=== PATIENT | female | born 1995 | race African-American/Black ===

== ENCOUNTER 2019-06-14 09:39 | Emergency (ER) | payer MEDICAID ==
[~2019-06-14] VITALS: Ht 157.5 cm; Wt 59.0 kg
[2019-06-14 09:58] VITALS: BP_SYST 137
[2019-06-14] MEDS ORDERED: ACETAMINOPHEN 500 MG TABLET PO ONE (10:30)
[2019-06-14 11:38] VITALS: BP_SYST 124
== END 2019-06-14 11:38 | disposition home or self-care (01) ==
LOC: SED 09:39
DX: S16.1XXA Strain of muscle, fascia and tendon at neck level, initial encounter (principal); S40.011A Contusion of right shoulder, initial encounter; R03.0 Elevated blood-pressure reading, without diagnosis of hypertension; Z88.7 Allergy status to serum and vaccine; Y04.0XXA Assault by unarmed brawl or fight, initial encounter; Y93.89 Activity, other specified; Y92.89 Other specified places as the place of occurrence of the external cause; Y99.8 Other external cause status
CPT/HCPCS: 72040-TC; 73030; 99283

== ENCOUNTER 2019-06-20 17:59 | Emergency (ER) | payer MEDICAID ==
[~2019-06-20] VITALS: Ht 157.5 cm; Wt 59.0 kg
[2019-06-20 18:05] VITALS: BP_SYST 108
[2019-06-20] MEDS ORDERED: traMADol HCL HCL 50 MG TABLET (ULTRAM) PO ONE (18:45)
[2019-06-20 19:55] VITALS: BP_SYST 112
== END 2019-06-20 19:55 | disposition home or self-care (01) ==
LOC: SED 17:59
DX: S29.011A Strain of muscle and tendon of front wall of thorax, initial encounter (principal); Z88.7 Allergy status to serum and vaccine; Z85.51 Personal history of malignant neoplasm of bladder; X50.9XXA Other and unspecified overexertion or strenuous movements or postures, initial encounter; Y93.89 Activity, other specified; Y92.89 Other specified places as the place of occurrence of the external cause; Y99.8 Other external cause status
CPT/HCPCS: 71045; 71100; 81025; 99283

== ENCOUNTER 2019-07-20 11:08 | Emergency (ER) | payer MEDICAID ==
[~2019-07-20] VITALS: Ht 157.5 cm; Wt 59.0 kg
[2019-07-20 11:10] VITALS: BP_SYST 127
[2019-07-20 11:41] LABS: BASOPHILS # (AUTO) 0.1 K/uL (0.0-0.2); BASOPHILS % (AUTO) 0.7 % (0.0-2.0); EOSINOPHILS # (AUTO) 0.2 K/uL (0.0-0.4); EOSINOPHILS % (AUTO) 2.2 % (0.0-4.0); HEMOGLOBIN 11.4 g/dL (12.0-16.0); LYMPHOCYTES # (AUTO) 2.9 K/uL (1.0-5.5); LYMPHOCYTES % (AUTO) 37.3 % (20.5-51.5); MEAN CORPUSCULAR HEMOGLOBIN 25 pg (27-31); MEAN CORPUSCULAR HGB CONC 33 % (32-36); MEAN CORPUSCULAR VOLUME 78 fL (79.0-98.0); MONOCYTES # (AUTO) 0.5 K/uL (0.0-1.0); NEUTROPHILS # (AUTO) 4.2 K/uL (1.8-7.7); NEUTROPHILS % (AUTO) 53.8 % (40.0-70.0); PLATELET COUNT (AUTO) 244 K/uL (130-430); RED BLOOD CELL COUNT(AUTO) 4.52 MIL/uL (4.2-6.2); WHITE BLOOD COUNT (AUTO) 7.8 K/uL (4.8-10.8)
[2019-07-20 12:14] LABS: CREATININE 0.76 mg/dL (0.55-1.30); POTASSIUM 3.4 mmol/L (3.5-5.1)
[2019-07-20] MEDS: NACL 0.9% 1,000 ML IV ONE (12:14)
[2019-07-20] MEDS: KETOROLAC TROMETHAMINE 30 MG VIAL IVP ONE (12:16)
[2019-07-20 12:18] LABS: ALBUMIN 4.2 g/dL (3.4-4.8); TOTAL BILIRUBIN 1.2 mg/dL (0.0-1.0)
[2019-07-20] MEDS: ONDANSETRON HCL 4 MG/2 ML VIAL IVP ONE (12:18)
[2019-07-20 12:48] LABS: BILIRUBIN,URINE 1+ (NEGATIVE); BLOOD, URINE 3+ (NEGATIVE); CLARITY/URINE CLEAR (CLEAR); COLOR,URINE YELLOW (YELLOW); GLUCOSE,URINE NEGATIVE (NEGATIVE); KETONES,URINE TRACE (NEGATIVE); LEUKOCYTE ESTERASE ,URINE NEGATIVE (NEGATIVE); NITRITE, URINE NEGATIVE (NEGATIVE); PROTEIN URINE NEGATIVE (NEGATIVE); UROBILINOGEN,URINE 0.2 (0.2-1.0)
[2019-07-20 13:30] LABS: BACTERIA,URINE FEW /HPF (None Seen); MUCUS,URINE 1+ /LPF (None Seen); WBC,URINE 0-3 /HPF (0-3)
[2019-07-20] MEDS: fentaNYL CITRATE/PF 100 MCG/2 ML AMP IVP ONE (15:05)
[2019-07-20 16:40] VITALS: BP_SYST 118
== END 2019-07-20 16:40 | disposition home or self-care (01) ==
LOC: SED 11:08
DX: N94.6 Dysmenorrhea, unspecified (principal); R11.2 Nausea with vomiting, unspecified; Z88.7 Allergy status to serum and vaccine
CPT/HCPCS: 36415; 74176; 76830; 76857; 80053; 81000; 81025; 84702; 85025; 96361; 96374; 96375; 99284; J1885; J2405; J3010; J7030

== ENCOUNTER 2019-09-20 10:40 | Emergency (ER) | payer MEDICAID ==
[~2019-09-20] VITALS: Ht 157.5 cm; Wt 59.0 kg
[2019-09-20 10:52] VITALS: BP_SYST 99
--- NOTE | 2019-09-20 11:00 | NUR ---
Patient AAOx4 c/o asthma exacerbation with SOB since 299 today and chest pain with respirations. Patient reports cough, congestion, and dizziness. Wheezes noted upon auscultation. Patient denies any other pain. Respirations labored, MD aware. RT at bedside. Will continue to monitor.
--- NOTE | 2019-09-20 11:02 | NUR ---
Patient to ER bed ch1 for evaluation. Side rails up. Report given to Hero BEATTY.
--- NOTE | 2019-09-20 11:10 | NUR ---
FORD Calabrese at bedside examining patient.
[2019-09-20] MEDS ORDERED: IPRATROPIUM/ALBUTEROL SULFATE 3 ML AMPUL.NEB (DUONEB) INH ONE ×2 (11:15→11:30)
[2019-09-20] MEDS ORDERED: methylPREDNISolone SOD SUCC/PF 62.5 MG/ML VIAL IM ONE (11:15)
[2019-09-20] MEDS ORDERED: IPRATROPIUM/ALBUTEROL SULFATE 3 ML AMPUL.NEB (DUONEB) ONE (11:37)
--- NOTE | 2019-09-20 12:45 | NUR ---
Patient resting in bed, denies any pain or SOB. Mother at bedside. No signs or symptoms of acute distress noted.
--- NOTE | 2019-09-20 12:50 | NUR ---
Report given to Rossy BEATTY using SBAR approach for continuation of care.
[2019-09-20 13:06] VITALS: BP_SYST 102
--- NOTE | 2019-09-20 13:06 | NUR ---
Patient given written and verbal discharge instructions and verbalizes understanding. ER MD Dr. Calabrese discussed with patient the results and treatment provided. Patient in stable condition. ID arm band removed. Rx of Prednisone, Albuterol, Promethazine, and Tamiflu given. Patient educated on respiratory/pain management and to follow up with PMD. Pain Scale 2/10. Opportunity for questions provided and answered. Medication side effect fact sheet provided.
== END 2019-09-20 13:06 | disposition home or self-care (01) ==
LOC: SED 10:40
DX: J10.1 Influenza due to other identified influenza virus with other respiratory manifestations (principal); J45.901 Unspecified asthma with (acute) exacerbation
CPT/HCPCS: 86710; 94640; 96372; 99284; J2930; J7620; 36415

== ENCOUNTER 2020-03-22 03:30 | Emergency (ER) | payer MEDICAID ==
[~2020-03-22] VITALS: Ht 157.5 cm; Wt 61.2 kg
--- NOTE | 2020-03-22 03:34 | NUR ---
Patient to ER bed 5 to gown for evaluation. Side rails up.
[2020-03-22 03:35] VITALS: BP_SYST 127
--- NOTE | 2020-03-22 03:36 | NUR ---
Patient came to ER. C/O Allergy x today. Patient states "woke up at 0300 AM, ate burritos last meal, bilateral eyes swelling and itchy. " A/O,X4, bilateral lower eye lid swelling and itchy, no SOB, chest tightness, oxygen sat 100% RA, place on varnish mixer.
--- NOTE | 2020-03-22 03:40 | NUR ---
ER Dr. Montenegro at bedside examining patient.
[2020-03-22] MEDS ORDERED: IPRATROPIUM/ALBUTEROL SULFATE 3 ML AMPUL.NEB (DUONEB) INH ONE (03:45)
[2020-03-22] MEDS ORDERED: EPINEPHrine 1 MG/ML AMP IM ONE (03:45)
--- NOTE | 2020-03-22 03:58 | NUR ---
RT at bedside for Breathing Treatment.
--- NOTE | 2020-03-22 04:25 | NUR ---
Patient will call her mother for a ride.
[2020-03-22] MEDS ORDERED: DIPHENHYDRAMINE INJ 50 MG/ML VIAL IM ONE (04:30)
--- NOTE | 2020-03-22 04:39 | NUR ---
Blood for labwork drawn from display artist. Patient tolerated well.
[2020-03-22 05:01] LABS: BASOPHILS # (AUTO) 0.1 K/uL (0.0-0.2); BASOPHILS % (AUTO) 0.7 % (0.0-2.0); EOSINOPHILS # (AUTO) 0.3 K/uL (0.0-0.4); EOSINOPHILS % (AUTO) 3.5 % (0.0-4.0); HEMATOCRIT 31.2 % (36-48); HEMOGLOBIN 9.8 g/dL (12.0-16.0); LYMPHOCYTES % (AUTO) 31.9 % (20.5-51.5); MEAN CORPUSCULAR HEMOGLOBIN 24 pg (27-31); MEAN CORPUSCULAR HGB CONC 32 % (32-36); MEAN CORPUSCULAR VOLUME 74 fL (79.0-98.0); MONOCYTES # (AUTO) 0.7 K/uL (0.0-1.0); MONOCYTES % (AUTO) 6.9 % (1.7-9.3); NEUTROPHILS # (AUTO) 5.5 K/uL (1.8-7.7); PLATELET COUNT (AUTO) 277 K/uL (130-430); RED CELL DISTRIBUTION WIDTH 17.6 % (9.0-15.0); WHITE BLOOD COUNT (AUTO) 9.6 K/uL (4.8-10.8)
[2020-03-22 05:14] LABS: CALCIUM 9.1 mg/dL (8.4-11.0); CREATININE 0.96 mg/dL (0.55-1.30); POTASSIUM 3.4 mmol/L (3.5-5.1)
[2020-03-22 05:20] LABS: ALBUMIN 3.6 g/dL (3.4-4.8); TOTAL BILIRUBIN 0.8 mg/dL (0.0-1.0)
--- NOTE | 2020-03-22 05:42 | NUR ---
Dr. Montenegro at bedside to Eval patient.
[2020-03-22] MEDS ORDERED: methylPREDNISolone SOD SUCC/PF 62.5 MG/ML VIAL IVP ONE (05:45)
--- NOTE | 2020-03-22 05:57 | NUR ---
Given IM Solu-Medrol [address] Montenegro verbal order, not IV.
--- NOTE | 2020-03-22 07:08 | NUR ---
Care of patient endorsed to JACI Davis.
--- NOTE | 2020-03-22 07:22 | NUR ---
report received from Margie RN. Pt is in stable condition and will be dc'd. Spoke w/ pt's mother Paula Washington who will puick up the pt.
[2020-03-22 07:44] VITALS: BP_SYST 127
--- NOTE | 2020-03-22 08:00 | NUR ---
Patient given written and verbal discharge instructions and verbalizes understanding. ER MD discussed with patient the results and treatment provided. Patient in stable condition. ID arm band removed. IV catheter removed intact and dressing applied, no active bleeding. Rx of Prednisone, Benadryl, given. Patient educated on pain management and to follow up with PMD. Pain Scale 0/10. Opportunity for questions provided and answered. Medication side effect fact sheet provided.
== END 2020-03-22 08:00 | disposition home or self-care (01) ==
LOC: SED 03:30
DX: T78.2XXA Anaphylactic shock, unspecified, initial encounter (principal); J45.909 Unspecified asthma, uncomplicated; Z85.51 Personal history of malignant neoplasm of bladder; Z88.8 Allergy status to other drugs, medicaments and biological substances; Y92.89 Other specified places as the place of occurrence of the external cause
CPT/HCPCS: 36415; 80053; 85025; 94640; 96372; 99285; J0171; J1200; J2930

== ENCOUNTER 2020-04-21 14:14 | Emergency (ER) | payer MEDICAID ==
[~2020-04-21] VITALS: Ht 157.5 cm; Wt 61.2 kg
[2020-04-21 14:24] VITALS: BP_SYST 132
[2020-04-21] MEDS ORDERED: KETOROLAC TROMETHAMINE 30 MG VIAL IVP ONE (14:45)
[2020-04-21 15:12] VITALS: BP_SYST 128
== END 2020-04-21 15:12 | disposition home or self-care (01) ==
LOC: SED 14:14
DX: M94.0 Chondrocostal junction syndrome [Tietze] (principal); J45.909 Unspecified asthma, uncomplicated; Z85.51 Personal history of malignant neoplasm of bladder; Z88.8 Allergy status to other drugs, medicaments and biological substances
CPT/HCPCS: 93005; 96374; 99283; J1885

== ENCOUNTER 2020-07-06 06:22 | Emergency (ER) | payer MEDICAID ==
[~2020-07-06] VITALS: Ht 157.5 cm; Wt 59.0 kg
[2020-07-06 06:31] VITALS: BP_SYST 122
[2020-07-06] MEDS ORDERED: cefTRIAXone 1 GM VIAL IM ONE (06:45)
[2020-07-06] MEDS ORDERED: AZITHROMYCIN 250 MG TABLET PO ONE (06:45)
[2020-07-06 06:46] LABS: BILIRUBIN,URINE NEGATIVE (NEGATIVE); BLOOD, URINE NEGATIVE (NEGATIVE); CLARITY/URINE CLEAR (CLEAR); COLOR,URINE YELLOW (YELLOW); GLUCOSE,URINE NEGATIVE (NEGATIVE); KETONES,URINE NEGATIVE (NEGATIVE); LEUKOCYTE ESTERASE ,URINE NEGATIVE (NEGATIVE); NITRITE, URINE NEGATIVE (NEGATIVE); PROTEIN URINE NEGATIVE (NEGATIVE); UROBILINOGEN,URINE 0.2 (0.2-1.0)
[2020-07-06 06:55] VITALS: BP_SYST 122
[2020-07-06] MEDS ORDERED: LIDOCAINE 1%, 20 ML MDV 20 ML ONE (07:07)
== END 2020-07-06 06:55 | disposition home or self-care (01) ==
LOC: SED 06:22
DX: J02.8 Acute pharyngitis due to other specified organisms (principal); B97.89 Other viral agents as the cause of diseases classified elsewhere; N39.0 Urinary tract infection, site not specified; R03.0 Elevated blood-pressure reading, without diagnosis of hypertension; J45.909 Unspecified asthma, uncomplicated; Z85.51 Personal history of malignant neoplasm of bladder; Z88.1 Allergy status to other antibiotic agents
CPT/HCPCS: 81003; 81025; 87491; 87591; 96372; 99283; J0696; J2001; Q0144

== ENCOUNTER 2021-01-12 22:51 | Emergency (ER) | payer MEDICAID ==
[~2021-01-12] VITALS: Ht 157.5 cm; Wt 72.6 kg
[2021-01-12 23:00] VITALS: BP_SYST 138
[2021-01-13 00:37] LABS: BILIRUBIN,URINE NEGATIVE (NEGATIVE); BLOOD, URINE NEGATIVE (NEGATIVE); CLARITY/URINE CLEAR (CLEAR); COLOR,URINE YELLOW (YELLOW); GLUCOSE,URINE NEGATIVE (NEGATIVE); KETONES,URINE NEGATIVE (NEGATIVE); LEUKOCYTE ESTERASE ,URINE NEGATIVE (NEGATIVE); NITRITE, URINE NEGATIVE (NEGATIVE); PH,URINE 5.5 (5.0-8.0); PROTEIN URINE NEGATIVE (NEGATIVE); UROBILINOGEN,URINE 0.2 (0.2-1.0)
[2021-01-13 01:00] LABS: BASOPHILS # (AUTO) 0.1 K/uL (0.0-0.2); BASOPHILS % (AUTO) 1.3 % (0.0-2.0); EOSINOPHILS # (AUTO) 0.3 K/uL (0.0-0.4); EOSINOPHILS % (AUTO) 2.7 % (0.0-4.0); LYMPHOCYTES # (AUTO) 2.5 K/uL (1.0-5.5); LYMPHOCYTES % (AUTO) 24.8 % (20.5-51.5); MEAN CORPUSCULAR HEMOGLOBIN 24 pg (27-31); MEAN CORPUSCULAR HGB CONC 32 % (32-36); MEAN CORPUSCULAR VOLUME 75 fL (79.0-98.0); MONOCYTES # (AUTO) 0.9 K/uL (0.0-1.0); MONOCYTES % (AUTO) 8.9 % (1.7-9.3); NEUTROPHILS # (AUTO) 6.3 K/uL (1.8-7.7); NEUTROPHILS % (AUTO) 62.3 % (40.0-70.0); PLATELET COUNT (AUTO) 261 K/uL (130-430); RED BLOOD CELL COUNT(AUTO) 4.52 MIL/uL (4.2-6.2); RED CELL DISTRIBUTION WIDTH 21.7 % (9.0-15.0); WHITE BLOOD COUNT (AUTO) 10.1 K/uL (4.8-10.8)
[2021-01-13] MEDS ORDERED: ACETAMINOPHEN 500 MG TABLET PO ONE (01:00)
[2021-01-13 01:21] LABS: CALCIUM 8.5 mg/dL (8.4-11.0); CREATININE 0.79 mg/dL (0.55-1.30)
[2021-01-13 01:43] LABS: ALBUMIN 3.4 g/dL (3.4-4.8); TOTAL BILIRUBIN 0.2 mg/dL (0.0-1.0)
[2021-01-13 03:20] VITALS: BP_SYST 138
== END 2021-01-13 03:22 | disposition home or self-care (01) ==
LOC: SED 22:51
DX: O26.891 Other specified pregnancy related conditions, first trimester (principal); R10.13 Epigastric pain; Z3A.01 Less than 8 weeks gestation of pregnancy; Z88.8 Allergy status to other drugs, medicaments and biological substances
CPT/HCPCS: 36415; 76801; 76817; 80053; 81003; 81025; 83690; 84702; 85025; 99284

== ENCOUNTER 2021-03-12 19:38 | Emergency (ER) | payer BC, MEDICAID ==
[~2021-03-12] VITALS: Ht 157.5 cm; Wt 83.0 kg
[2021-03-12 19:51] VITALS: BP_SYST 126
--- NOTE | 2021-03-12 20:04 | NUR ---
Patient ambulatory to bed 4 for evaluation
--- NOTE | 2021-03-12 20:20 | NUR ---
PT ARRIVED TO ER WITH C/C OF A COLD X1 WEEK, MIGRAINES X3 WEEKS, ABDOMINAL PAIN RATED AT 8/10 AND VAGINAL BLEED. PT STATES IT IS BARELY ONE PAD OF BLOOD. PT SEEMS IN NO DISTRESS NOW
--- NOTE | 2021-03-12 20:27 | NUR ---
ER Dr. SUAZO at bedside examining patient.
[2021-03-12] MEDS ORDERED: NACL 0.9% 1,000 ML IV ONE (20:30)
[2021-03-12 21:03] LABS: BASOPHILS % (AUTO) 0.3 % (0.0-2.0); EOSINOPHILS # (AUTO) 0.2 K/uL (0.0-0.4); EOSINOPHILS % (AUTO) 1.4 % (0.0-4.0); HEMOGLOBIN 11.1 g/dL (12.0-16.0); LYMPHOCYTES # (AUTO) 2.3 K/uL (1.0-5.5); LYMPHOCYTES % (AUTO) 17.5 % (20.5-51.5); MEAN CORPUSCULAR HEMOGLOBIN 26 pg (27-31); MEAN CORPUSCULAR HGB CONC 34 % (32-36); MEAN CORPUSCULAR VOLUME 79 fL (79.0-98.0); MONOCYTES # (AUTO) 0.8 K/uL (0.0-1.0); MONOCYTES % (AUTO) 6.5 % (1.7-9.3); NEUTROPHILS # (AUTO) 9.7 K/uL (1.8-7.7); NEUTROPHILS % (AUTO) 74.3 % (40.0-70.0); PLATELET COUNT (AUTO) 210 K/uL (130-430); RED CELL DISTRIBUTION WIDTH 17.1 % (9.0-15.0); WHITE BLOOD COUNT (AUTO) 13.1 K/uL (4.8-10.8)
--- NOTE | 2021-03-12 21:17 | NUR ---
Patient transported to [facility] via , accompanied by TECH.
--- NOTE | 2021-03-12 21:42 | NUR ---
PATIENT RETURNED IN STABLE CONDITION.
[2021-03-12 22:06] LABS: BILIRUBIN,URINE NEGATIVE (NEGATIVE); BLOOD, URINE NEGATIVE (NEGATIVE); CLARITY/URINE CLEAR (CLEAR); COLOR,URINE YELLOW (YELLOW); GLUCOSE,URINE NEGATIVE (NEGATIVE); KETONES,URINE 1+ (NEGATIVE); LEUKOCYTE ESTERASE ,URINE NEGATIVE (NEGATIVE); NITRITE, URINE NEGATIVE (NEGATIVE); PROTEIN URINE NEGATIVE (NEGATIVE); UROBILINOGEN,URINE 0.2 (0.2-1.0)
[2021-03-12 22:13] VITALS: BP_SYST 122
--- NOTE | 2021-03-12 22:13 | NUR ---
Patient given written and verbal discharge instructions and verbalizes understanding. ER MD discussed with patient the results and treatment provided. Patient in stable condition. ID arm band removed. IV catheter removed intact and dressing applied, no active bleeding. NO RX given. Patient educated on pain management and to follow up with PMD. Pain Scale 0/10 Opportunity for questions provided and answered.
== END 2021-03-12 22:13 | disposition home or self-care (01) ==
LOC: SED 19:38
DX: O20.0 Threatened abortion (principal); J45.909 Unspecified asthma, uncomplicated; Z88.7 Allergy status to serum and vaccine; Z3A.13 13 weeks gestation of pregnancy
CPT/HCPCS: 36415; 76805; 81003; 81025; 84702; 85025; 86900; 86901; 96360; 99284; J7030

== ENCOUNTER 2023-06-15 14:08 | Emergency (ER) | payer BC, MEDICAID ==
[~2023-06-15] VITALS: Ht 157.5 cm; Wt 77.1 kg
[2023-06-15 14:14] VITALS: BP_SYST 126; PULSE 90; RESP 18; TEMP 98.3; O2SAT 98
[2023-06-15 16:39] LABS: BASOPHILS # (AUTO) 0.1 K/uL (0.0-0.2); BASOPHILS % (AUTO) 0.8 % (0.0-2.0); EOSINOPHILS # (AUTO) 0.4 K/uL (0.0-0.4); EOSINOPHILS % (AUTO) 3.5 % (0.0-4.0); HEMATOCRIT 31.6 % (36-48); HEMOGLOBIN 10.3 g/dL (12.0-16.0); LYMPHOCYTES # (AUTO) 3.1 K/uL (1.0-5.5); LYMPHOCYTES % (AUTO) 31.1 % (20.5-51.5); MEAN CORPUSCULAR HEMOGLOBIN 25 pg (27-31); MEAN CORPUSCULAR HGB CONC 33 % (32-36); MEAN CORPUSCULAR VOLUME 77 fL (79.0-98.0); MONOCYTES # (AUTO) 0.5 K/uL (0.0-1.0); MONOCYTES % (AUTO) 4.8 % (1.7-9.3); NEUTROPHILS # (AUTO) 5.9 K/uL (1.8-7.7); NEUTROPHILS % (AUTO) 59.8 % (40.0-70.0); PLATELET COUNT (AUTO) 257 K/uL (130-430); RED BLOOD CELL COUNT(AUTO) 4.11 MIL/uL (4.2-6.2); RED CELL DISTRIBUTION WIDTH 16.8 % (9.0-15.0)
[2023-06-15 16:45] LABS: ERYTHROCYTE SEDIMENTATION RATE 8 MM/HR (0-20)
[2023-06-15 16:49] LABS: CREATININE 0.9 mg/dL (0.55-1.30); POTASSIUM 3.9 mmol/L (3.5-5.1)
[2023-06-15 17:01] LABS: ALBUMIN 3.5 g/dL (3.4-4.8); TOTAL BILIRUBIN 0.5 mg/dL (0.0-1.0); TOTAL PROTEIN, SERUM 7.2 g/dL (6.4-8.3)
[2023-06-15] MEDS ORDERED: AMOX-423 PO (17:57)
[2023-06-15 18:33] VITALS: BP_SYST 126; PULSE 90; RESP 18; TEMP 98.3; O2SAT 98
== END 2023-06-15 18:34 | disposition home or self-care (01) ==
LOC: SED 14:08
DX: L04.0 Acute lymphadenitis of face, head and neck (principal); H92.01 Otalgia, right ear; R51.9 Headache, unspecified; J45.909 Unspecified asthma, uncomplicated; Z85.51 Personal history of malignant neoplasm of bladder; Z88.7 Allergy status to serum and vaccine; Z79.899 Other long term (current) drug therapy
CPT/HCPCS: 36415; 70450-TC; 76376; 80053; 85025; 85651-TC; 99284

== ENCOUNTER 2023-07-24 09:11 | Emergency (ER) | payer MEDICAID ==
[~2023-07-24] VITALS: Ht 157.5 cm; Wt 77.1 kg
[~2023-07-24 09:11] MED LIST: AMOX-423 PO
[2023-07-24 09:21] VITALS: BP_SYST 121; PULSE 86; RESP 22; TEMP 98.3; O2SAT 100
[2023-07-24 09:45] LABS: BILIRUBIN,URINE NEGATIVE (NEGATIVE); BLOOD, URINE 3+ (NEGATIVE); CLARITY/URINE CLEAR (CLEAR); COLOR,URINE YELLOW (YELLOW); GLUCOSE,URINE NEGATIVE (NEGATIVE); KETONES,URINE NEGATIVE (NEGATIVE); LEUKOCYTE ESTERASE ,URINE NEGATIVE (NEGATIVE); NITRITE, URINE NEGATIVE (NEGATIVE); PROTEIN URINE NEGATIVE (NEGATIVE); UROBILINOGEN,URINE 0.2 (0.2-1.0)
[2023-07-24 09:58] LABS: BACTERIA,URINE None Seen /HPF (None Seen); CALCIUM OXALATE CRYSTALS,UR None Seen /HPF (None Seen); CALCIUM PHOSPHATE CRYSTALS,UR None Seen /HPF (None Seen); COARSE GRANULAR CASTS,URINE None Seen /LPF (None Seen); FINE GRANULAR CASTS,URINE None Seen /LPF (None Seen); HYALINE CASTS, URINE None Seen /LPF (None Seen); MUCUS,URINE 2+ /LPF (None Seen); OTHER CASTS, URINE None Seen /LPF (None Seen); OTHER CRYSTALS,URINE None Seen /HPF (None Seen); TRICHOMONAS,URINE None Seen /HPF (None Seen); TRIPLE PHOSPHATE CRYSTAL,UR None Seen /HPF (None Seen); URIC ACID CRYSTALS,URINE None Seen /HPF (None Seen); URINE AMORPHOUS PHOSPHATES None Seen /HPF (None Seen); URINE AMORPHOUS URATE None Seen /HPF (None Seen); WAXY CASTS,URINE None Seen /LPF (None Seen); WBC,URINE NONE SEEN /HPF (0-3); YEAST,URINE None Seen /HPF (None Seen)
[2023-07-24 10:00] LABS: BASOPHILS # (AUTO) 0.1 K/uL (0.0-0.2); BASOPHILS % (AUTO) 0.9 % (0.0-2.0); EOSINOPHILS # (AUTO) 0.2 K/uL (0.0-0.4); EOSINOPHILS % (AUTO) 2.5 % (0.0-4.0); HEMATOCRIT 34.5 % (36-48); LYMPHOCYTES # (AUTO) 2.4 K/uL (1.0-5.5); LYMPHOCYTES % (AUTO) 37.4 % (20.5-51.5); MEAN CORPUSCULAR HEMOGLOBIN 25 pg (27-31); MEAN CORPUSCULAR HGB CONC 32 % (32-36); MEAN CORPUSCULAR VOLUME 77 fL (79.0-98.0); MONOCYTES # (AUTO) 0.4 K/uL (0.0-1.0); MONOCYTES % (AUTO) 6.2 % (1.7-9.3); NEUTROPHILS # (AUTO) 3.4 K/uL (1.8-7.7); PLATELET COUNT (AUTO) 367 K/uL (130-430); RED CELL DISTRIBUTION WIDTH 16.4 % (9.0-15.0); WHITE BLOOD COUNT (AUTO) 6.4 K/uL (4.8-10.8)
[2023-07-24 10:16] LABS: INR 1.1 (0.8-1.2); PROTHROMBIN TIME 11.3 SECS (9.5-12.5)
[2023-07-24 12:22] VITALS: BP_SYST 119; PULSE 77; RESP 19; TEMP 98.3; O2SAT 100
== END 2023-07-24 12:22 | disposition home or self-care (01) ==
LOC: SED 09:11
DX: O20.9 Hemorrhage in early pregnancy, unspecified (principal); Z3A.01 Less than 8 weeks gestation of pregnancy; J45.909 Unspecified asthma, uncomplicated; Z88.7 Allergy status to serum and vaccine; Z85.51 Personal history of malignant neoplasm of bladder; Z79.899 Other long term (current) drug therapy
CPT/HCPCS: 36415; 76801; 81000; 81001; 81015; 81025; 84702; 85025; 85610-TC; 85730-TC; 86900; 86901; 99284

== ENCOUNTER 2023-07-26 11:03 | Emergency (ER) | payer MEDICAID ==
[~2023-07-26] VITALS: Ht 157.5 cm; Wt 77.1 kg
[2023-07-26 11:14] VITALS: BP_SYST 139; PULSE 97; RESP 18; TEMP 97.8; O2SAT 98
[2023-07-26 11:23] LABS: BASOPHILS # (AUTO) 0.1 K/uL (0.0-0.2); BASOPHILS % (AUTO) 0.9 % (0.0-2.0); EOSINOPHILS # (AUTO) 0.1 K/uL (0.0-0.4); EOSINOPHILS % (AUTO) 2.3 % (0.0-4.0); HEMATOCRIT 34.1 % (36-48); HEMOGLOBIN 10.9 g/dL (12.0-16.0); LYMPHOCYTES # (AUTO) 2.5 K/uL (1.0-5.5); LYMPHOCYTES % (AUTO) 39.3 % (20.5-51.5); MEAN CORPUSCULAR HEMOGLOBIN 25 pg (27-31); MEAN CORPUSCULAR HGB CONC 32 % (32-36); MEAN CORPUSCULAR VOLUME 77 fL (79.0-98.0); MONOCYTES # (AUTO) 0.4 K/uL (0.0-1.0); MONOCYTES % (AUTO) 6.1 % (1.7-9.3); NEUTROPHILS # (AUTO) 3.2 K/uL (1.8-7.7); NEUTROPHILS % (AUTO) 51.4 % (40.0-70.0); PLATELET COUNT (AUTO) 281 K/uL (130-430); RED BLOOD CELL COUNT(AUTO) 4.42 MIL/uL (4.2-6.2); RED CELL DISTRIBUTION WIDTH 16.1 % (9.0-15.0); WHITE BLOOD COUNT (AUTO) 6.3 K/uL (4.8-10.8)
[2023-07-26] MEDS ORDERED: MISO200T PO (12:09)
[2023-07-26] MEDS ORDERED: TRAM50TA2 PO (12:09)
[2023-07-26] MEDS ORDERED: miSOPROStoL 200 MCG TABLET (CYTOTEC) PO ONE (12:15)
[2023-07-26 15:57] VITALS: BP_SYST 139; PULSE 97; RESP 18; TEMP 97.8; O2SAT 98
== END 2023-07-26 12:18 | disposition home or self-care (01) ==
LOC: SED 11:03
DX: O03.9 Complete or unspecified spontaneous abortion without complication (principal); O26.891 Other specified pregnancy related conditions, first trimester; Z3A.01 Less than 8 weeks gestation of pregnancy; J45.909 Unspecified asthma, uncomplicated; Z85.51 Personal history of malignant neoplasm of bladder; Z88.7 Allergy status to serum and vaccine; Z79.899 Other long term (current) drug therapy
CPT/HCPCS: 36415; 84702; 85025; 99283

== ENCOUNTER 2023-08-01 08:07 | Emergency (ER) | payer MEDICAID ==
[~2023-08-01] VITALS: Ht 157.5 cm; Wt 72.6 kg
[~2023-08-01 08:07] MED LIST changes: +MISO200T PO; +TRAM50TA2 PO
[2023-08-01 08:11] VITALS: BP_SYST 129; PULSE 108; RESP 20; TEMP 98.3; O2SAT 98
[2023-08-01] MEDS ORDERED: NACL 0.9% 1,000 ML IV ONE (08:45)
[2023-08-01] MEDS ORDERED: FAMOTIDINE PF 20 MG/2 ML VIAL IVP ONE (08:45)
[2023-08-01] MEDS ORDERED: KETOROLAC TROMETHAMINE 15 MG VIAL IVP ONE (08:45)
[2023-08-01 08:57] LABS: BASOPHILS % (AUTO) 0.5 % (0.0-2.0); EOSINOPHILS # (AUTO) 0.2 K/uL (0.0-0.4); EOSINOPHILS % (AUTO) 2.3 % (0.0-4.0); HEMATOCRIT 33.5 % (36-48); HEMOGLOBIN 10.4 g/dL (12.0-16.0); LYMPHOCYTES # (AUTO) 2.5 K/uL (1.0-5.5); MEAN CORPUSCULAR HEMOGLOBIN 24 pg (27-31); MEAN CORPUSCULAR HGB CONC 31 % (32-36); MEAN CORPUSCULAR VOLUME 77 fL (79.0-98.0); MONOCYTES # (AUTO) 0.3 K/uL (0.0-1.0); MONOCYTES % (AUTO) 4.7 % (1.7-9.3); NEUTROPHILS # (AUTO) 4.2 K/uL (1.8-7.7); NEUTROPHILS % (AUTO) 58.5 % (40.0-70.0); PLATELET COUNT (AUTO) 301 K/uL (130-430); RED BLOOD CELL COUNT(AUTO) 4.37 MIL/uL (4.2-6.2); RED CELL DISTRIBUTION WIDTH 16.5 % (9.0-15.0); WHITE BLOOD COUNT (AUTO) 7.2 K/uL (4.8-10.8)
[2023-08-01 09:34] LABS: CALCIUM 9.3 mg/dL (8.4-11.0); CREATININE 0.74 mg/dL (0.55-1.30); POTASSIUM 3.8 mmol/L (3.5-5.1)
[2023-08-01 09:40] LABS: ALBUMIN 3.5 g/dL (3.4-4.8); TOTAL BILIRUBIN 0.5 mg/dL (0.0-1.0); TOTAL PROTEIN, SERUM 6.9 g/dL (6.4-8.3)
[2023-08-01] MEDS ORDERED: MAG HYDROX/AL HYDROX/SIMETH 30 ML, DICYCLOMINE HCL 20 MG, LIDOCAINE VISCOUS 2% 15ML (PO... PO ONE ×3 (10:30)
[2023-08-01] MEDS ORDERED: PRO40 PO (11:28)
[2023-08-01] MEDS ORDERED: ACET-73 PO (11:28)
[2023-08-01] MEDS ORDERED: ANT30 PO (11:28)
[2023-08-01 12:15] VITALS: BP_SYST 129; PULSE 79; RESP 18; TEMP 97.9; O2SAT 99
== END 2023-08-01 12:14 | disposition home or self-care (01) ==
LOC: SED 08:07
DX: K80.50 Calculus of bile duct without cholangitis or cholecystitis without obstruction (principal); K21.9 Gastro-esophageal reflux disease without esophagitis; D64.9 Anemia, unspecified; R10.11 Right upper quadrant pain; J45.909 Unspecified asthma, uncomplicated; Z85.51 Personal history of malignant neoplasm of bladder; Z88.7 Allergy status to serum and vaccine; Z79.899 Other long term (current) drug therapy
CPT/HCPCS: 99285; 96374; 76705; 96361; 96375; 80053; 83690; 85025; 36415; 81025; J2001; J3490; J1885; J7030

== ENCOUNTER 2023-11-19 09:46 | Emergency (ER) | payer MEDICAID ==
[~2023-11-19] VITALS: Ht 157.5 cm; Wt 72.6 kg
[2023-11-19 09:46] VITALS: BP_SYST 125; PULSE 93; RESP 18; TEMP 98.7; O2SAT 100
[~2023-11-19 09:46] MED LIST changes: +ACET-73 PO; +ANT30 PO; +PRO40 PO
[2023-11-19 10:52] LABS: BILIRUBIN,URINE NEGATIVE (NEGATIVE); BLOOD, URINE NEGATIVE (NEGATIVE); CLARITY/URINE CLEAR (CLEAR); COLOR,URINE YELLOW (YELLOW); GLUCOSE,URINE NEGATIVE (NEGATIVE); KETONES,URINE NEGATIVE (NEGATIVE); LEUKOCYTE ESTERASE ,URINE NEGATIVE (NEGATIVE); NITRITE, URINE NEGATIVE (NEGATIVE); PROTEIN URINE NEGATIVE (NEGATIVE); UROBILINOGEN,URINE 0.2 (0.2-1.0)
[2023-11-19] MEDS: NACL 0.9% 1,000 ML IV ONE ×2 (10:53→11:07)
[2023-11-19] MEDS: KETOROLAC TROMETHAMINE 30 MG VIAL IVP ONE (10:55)
[2023-11-19 11:06] LABS: BASOPHILS % (AUTO) 0.6 % (0.0-2.0); EOSINOPHILS # (AUTO) 0.1 K/uL (0.0-0.4); EOSINOPHILS % (AUTO) 1.6 % (0.0-4.0); HEMATOCRIT 35.2 % (36-48); HEMOGLOBIN 11.4 g/dL (12.0-16.0); LYMPHOCYTES # (AUTO) 2.4 K/uL (1.0-5.5); LYMPHOCYTES % (AUTO) 30.8 % (20.5-51.5); MEAN CORPUSCULAR HEMOGLOBIN 25 pg (27-31); MEAN CORPUSCULAR HGB CONC 32 % (32-36); MEAN CORPUSCULAR VOLUME 76 fL (79.0-98.0); MONOCYTES # (AUTO) 0.5 K/uL (0.0-1.0); MONOCYTES % (AUTO) 6.5 % (1.7-9.3); NEUTROPHILS # (AUTO) 4.7 K/uL (1.8-7.7); NEUTROPHILS % (AUTO) 60.5 % (40.0-70.0); PLATELET COUNT (AUTO) 339 K/uL (130-430); RED BLOOD CELL COUNT(AUTO) 4.62 MIL/uL (4.2-6.2); RED CELL DISTRIBUTION WIDTH 17.6 % (9.0-15.0); WHITE BLOOD COUNT (AUTO) 7.7 K/uL (4.8-10.8)
[2023-11-19] MEDS: ONDANSETRON HCL 4 MG/2 ML VIAL IVP ONE (11:07)
[2023-11-19 11:32] LABS: CALCIUM 9.4 mg/dL (8.4-11.0); CREATININE 0.66 mg/dL (0.55-1.30); POTASSIUM 3.9 mmol/L (3.5-5.1)
[2023-11-19 11:54] LABS: ALBUMIN 3.9 g/dL (3.4-4.8); BILIRUBIN,DIRECT 0.1 mg/dL (0.0-0.3); TOTAL BILIRUBIN 1.1 mg/dL (0.0-1.0); TOTAL PROTEIN, SERUM 7.9 g/dL (6.4-8.3)
[2023-11-19] MEDS: ACETAMINOPHEN 500 MG TABLET PO ONE (14:23)
[2023-11-19 15:42] VITALS: BP_SYST 138; PULSE 106; RESP 18; TEMP 98.6; O2SAT 98
== END 2023-11-19 15:41 | disposition home or self-care (01) ==
LOC: SED 09:46
DX: O99.611 Diseases of the digestive system complicating pregnancy, first trimester (principal); O43.891 Other placental disorders, first trimester; O20.0 Threatened abortion; Z3A.01 Less than 8 weeks gestation of pregnancy; J45.909 Unspecified asthma, uncomplicated; Z85.51 Personal history of malignant neoplasm of bladder; Z88.7 Allergy status to serum and vaccine; Z79.899 Other long term (current) drug therapy
CPT/HCPCS: 99285; 96374; 76700; 76801; 96361; 80076; 80048; 81001; 84702; 83880; 83690; 85025; 85379; 84484; 36415; 76817; 81025; 81003; J2405; J7030

== ENCOUNTER 2024-06-27 14:41 | Emergency (ER) | payer MEDICAID ==
[~2024-06-27] VITALS: Ht 157.5 cm; Wt 87.5 kg
[2024-06-27 14:43] VITALS: BP_SYST 152; PULSE 84; RESP 20; TEMP 98.2; O2SAT 98
[2024-06-27] MEDS: ASPIRIN 81 MG TAB.CHEW PO ONE (15:15)
[2024-06-27 15:40] LABS: BASOPHILS % (AUTO) 0.4 % (0.0-2.0); EOSINOPHILS # (AUTO) 0.7 K/uL (0.0-0.4); EOSINOPHILS % (AUTO) 6.1 % (0.0-4.0); HEMATOCRIT 33.5 % (36-48); HEMOGLOBIN 11.3 g/dL (12.0-16.0); LYMPHOCYTES # (AUTO) 2.3 K/uL (1.0-5.5); LYMPHOCYTES % (AUTO) 20.3 % (20.5-51.5); MEAN CORPUSCULAR HEMOGLOBIN 29 pg (27-31); MEAN CORPUSCULAR HGB CONC 34 % (32-36); MEAN CORPUSCULAR VOLUME 84 fL (79.0-98.0); MONOCYTES # (AUTO) 0.6 K/uL (0.0-1.0); MONOCYTES % (AUTO) 5.3 % (1.7-9.3); NEUTROPHILS # (AUTO) 7.7 K/uL (1.8-7.7); NEUTROPHILS % (AUTO) 67.9 % (40.0-70.0); PLATELET COUNT (AUTO) 286 K/uL (130-430); RED BLOOD CELL COUNT(AUTO) 3.96 MIL/uL (4.2-6.2); RED CELL DISTRIBUTION WIDTH 13.7 % (9.0-15.0); WHITE BLOOD COUNT (AUTO) 11.4 K/uL (4.8-10.8)
[2024-06-27 15:59] LABS: ALBUMIN 2.9 g/dL (3.4-4.8); BILIRUBIN,DIRECT 0.2 mg/dL (0.0-0.3); CALCIUM 9.1 mg/dL (8.4-11.0); CREATININE 0.7 mg/dL (0.55-1.30); POTASSIUM 3.2 mmol/L (3.5-5.1); TOTAL BILIRUBIN 0.9 mg/dL (0.0-1.0); TOTAL PROTEIN, SERUM 6.4 g/dL (6.4-8.3)
[2024-06-27 16:23] LABS: BILIRUBIN,URINE NEGATIVE (NEGATIVE); CLARITY/URINE CLEAR (CLEAR); COLOR,URINE YELLOW (YELLOW); GLUCOSE,URINE NEGATIVE (NEGATIVE); KETONES,URINE NEGATIVE (NEGATIVE); LEUKOCYTE ESTERASE ,URINE NEGATIVE (NEGATIVE); NITRITE, URINE NEGATIVE (NEGATIVE); PH,URINE 7.5 (5.0-8.0); PROTEIN URINE NEGATIVE (NEGATIVE); UROBILINOGEN,URINE 0.2 (0.2-1.0)
[2024-06-27 16:50] LABS: BLOOD, URINE TRACE (NEGATIVE)
[2024-06-27 16:52] LABS: BACTERIA,URINE None Seen /HPF (None Seen)
[2024-06-27] MEDS: MORPHINE 4 MG INJ. 4 MG/ML VIAL IVP ONE (17:46)
[2024-06-27] MEDS ORDERED: HYDR-3917 PO (20:32)
[2024-06-27] MEDS: MORPHINE 2 MG/ML INJ. SYRINGE IVP ONE (21:04)
[2024-06-27 21:10] VITALS: TEMP 98.6
[2024-06-27 21:15] VITALS: BP_SYST 159; PULSE 75; RESP 18; O2SAT 98
== END 2024-06-27 21:10 | disposition home or self-care (01) ==
LOC: SED 14:41
DX: R10.13 Epigastric pain (principal); I10 Essential (primary) hypertension; J45.909 Unspecified asthma, uncomplicated; Z88.7 Allergy status to serum and vaccine; Z85.51 Personal history of malignant neoplasm of bladder; Z79.899 Other long term (current) drug therapy
CPT/HCPCS: 99285; 96374; 76700; 80076; 80048; 81001; 83690; 85025; 36415; 93005; 96376; 81025; 81000; 81015; J2270 ×2